=== PATIENT | male | born 1960 | race Two or more races ===

== ENCOUNTER 2025-08-06 09:32 | Emergency (ER) | payer MEDICAID, OTHER ==
[~2025-08-06] VITALS: Ht 160 cm; Wt 79.2 kg
[2025-08-06] MEDS ORDERED: AUG875T PO (09:59)
[2025-08-06] MEDS ORDERED: IBUP1TAB5 PO (09:59)
--- NOTE | 2025-08-06 10:00 | ED.PDOC ---
Eye-HPI HPI Comments This is a 64-year-old gentleman that comes in with swelling in the left side of his face. He was giving amoxicillin about 10 days ago for an infection he went to see the dentist had some repair done and now he comes back with some consistent swelling in the left side of his cheek. He goes back to the dentist in three months he had. Three two molars replaced. Chief Complaint: Tooth Pain Time Seen by MD: 09:40 Reviewed Notes: Nurses Notes Allergies: Coded Allergies: NO KNOWN ALLERGIES (Unverified , 08/06/25) Mode of Arrival: Ambulatory Past Medical History PAST MEDICAL HISTORY: Denies Social History Smoker: Non-Smoker Alcohol: Denies ETOH Use Drugs: Denies Drug Use Lives In: Home Constitutional: reports: chills, malaise EENTM: reports: mouth pain, mouth swelling All Other Systems: Reviewed and Negative Physical Exam General Appearance: No Apparent Distress, None HEENT: Other (Left lower jaw with some tenderness and swelling no fluctuance no induration, two molars intact without any surrounding erythema to the tissue or tenderness) Neck: Non-Tender, Normal Inspection, Supple Respiratory: Lungs Clear, No Respiratory Distress, Normal Breath Sounds Cardiovascular: Regular Rate/Rhythm Breast Exam: Deferred Gastrointestinal: Non Tender, Soft Genitalia: Deferred Pelvic: Deferred Rectal: Deferred Extremities: Normal inspection, Normal range of motion Neurologic: Alert, Normal Affect, Normal Mood Cerebellar Function: Normal Reflexes: Normal Skin: Dry, Warm Lymphatic: No Adenopathy Was a procedure done? Was a procedure done?: No EENT DIFF Eye: N/A Other Differential Diagnosis Cellulitis X-Ray, Labs, Meds, VS Vital Signs Date Time Temp Pulse Resp B/P (MAP) Pulse Ox O2 Delivery O2 Flow Rate FiO2 08/06/25 09:33 97.3 66 16 149/98 99 97.3 X-Ray, Labs, Meds, VS Comment Patient seen and examined by me. Patient already has had tooth repair done by the dentist but continues to have swelling and pain. Last time he received amoxicillin this time I will give him Augmentin plus I will give him some anti- inflammatories. Instructed him to chew on opposite side of his. Mouth and follow up with a dentist Time of 1ST Reevaluation: 09:57 Reevaluation 1ST: Improved Patient Education/Counseling: Diagnosis, Treatment, Prognosis, Need For Follow Up Family Education/Counseling: No Family Present SEPSIS Sepsis Screen Date sepsis recognized/suspect: Aug 06, 2025 Time Sepsis recognized/suspect: 0934 Recent Procedure: No On Antibiotic Therapy: No Respiratory Rate >20: No Heart Rate >90: No Temp<36 C (96.8 F) or >38.3 C: No SBP <90 or MAP <65 mmHG: No New Acute Mental Status Change: No Is the patient on CPAP, BIPAP,: No Vital Signs Date Time Temp Pulse Resp B/P (MAP) Pulse Ox O2 Delivery O2 Flow Rate FiO2 08/06/25 09:33 97.3 66 16 149/98 99 97.3 Departure 1 Departure Time of Disposition: 09:57 Impression: Primary Impression: Gingivitis Additional Impression: Toothache Disposition: HOME / SELF CARE / HOMELESS Condition: Good Additional Instructions: Finish the antibiotics until complete Take the anti-inflammatory with food 3 times a day to help with swelling To on the opposite side of your mouth If you continue with pain go back to the dentist e-Prescriptions Ibuprofen Micronized (Ibuprofen) 600 Mg Tab 600 MG PO Q6HPRN PRN for 5 Days, #20 TAB Prov: RHONA PURI [employer] 08/06/25 Amoxicillin & Pot Clavulanate (AUGMENTIN TABLET) 875 Mg Tb 875 MG PO BID for 10 Days, #20 TAB Prov: RHONA PURIP 08/06/25 Discharged With: Self Critical Care Note Critical Care Time?: No Stability Stability form required: No RHONA PURI Aug 06, 2025 10:00
[2025-08-06 10:03] VITALS: BP 137/98; PULSE 63; RESP 17; TEMP 97.4; O2SAT 97
== END 2025-08-06 10:05 | disposition home or self-care (01) ==
LOC: ER 09:32
DX: K05.10 Chronic gingivitis, plaque induced (principal); K08.89 Other specified disorders of teeth and supporting structures